=== PATIENT | female | born 1990 ===

== ENCOUNTER 2020-03-29 11:15 | Inpatient (IN) | payer OTHER ==
[~2020-03-29] VITALS: Ht 165.1 cm; Wt 91.2 kg
[2020-04-13] MEDS ORDERED: PRENATAL TABLE1 EAC1 PO (02:04)
== END 2020-04-15 14:44 | disposition home or self-care (01) | DRG 807 ==
LOC: LDR 04-13 10:49 → OB/GYN 04-13 10:49
PROVIDERS: Obstetrics & Gynecology; ADMIT Specialist; ATTEND Specialist
PROC: 0KQM0ZZ Repair Perineum Muscle, Open Approach (ICD-10-PCS; 2020-04-13)
PROC: 0UQMXZZ Repair Vulva, External Approach (ICD-10-PCS; 2020-04-13)
PROC: 0UQGXZZ Repair Vagina, External Approach (ICD-10-PCS; 2020-04-13)
PROC: 4A1HXCZ Monitoring of Products of Conception, Cardiac Rate, External Approach (ICD-10-PCS; 2020-04-13)
PROC: 10E0XZZ Delivery of Products of Conception, External Approach (ICD-10-PCS; principal; 2020-04-13 15:15)
DX: O70.1 Second degree perineal laceration during delivery (principal); Z37.0 Single live birth; O71.82 Other specified trauma to perineum and vulva; Z3A.40 40 weeks gestation of pregnancy; Z22.330 Carrier of Group B streptococcus

== ENCOUNTER 2020-04-13 01:46 | Outpatient (CLI) | payer OTHER ==
[2020-04-13] MEDS ORDERED: PRENATAL TABLE1 EAC1 PO (02:04)
== END 2020-04-13 10:50 | disposition still patient (30) ==
LOC: OBS/DEL 01:46
PROVIDERS: ATTEND Specialist
DX: O47.1 False labor at or after 37 completed weeks of gestation (principal)